=== PATIENT | female | born 1970 | race African-American/Black ===

== ENCOUNTER 2017-06-27 18:35 | Emergency (ER) | payer OTHER ==
[2017-06-27 19:32] LABS: Hematocrit 37.9 % (30.3-42.9); Mean Corpuscular HGB Conc 32 % (30-34); Mean Corpuscular Volume 77 fl (79-97); Platelet Count 218 K/mm3 (140-440); Red Blood Count 4.95 M/mm3 (3.65-5.03)
[2017-06-27 19:43] LABS: Alanine Aminotransferase 16 units/L (7-56); Albumin 3.7 g/dL (3.9-5); BUN/Creatinine Ratio 22; Blood Urea Nitrogen 11 mg/dL (7-17); Calcium 9.1 mg/dL (8.4-10.2); Hemolysis Index 1
[2017-06-27 19:51] LABS: Mean Corpuscular Hemoglobin 24 pg (28-32); Red Cell Distribution Width 26.9 % (13.2-15.2)
[2017-06-27 20:17] LABS: Basophils % (Manual) 0 % (0.0-1.8); Total Cells Counted 100
[2017-06-27 20:18] LABS: Ovalocytes 1+
[2017-06-27 20:19] LABS: Poikilocytosis Few
--- NOTE | 2017-06-27 21:20 | XRay Report ---
FINAL REPORT EXAM: XR CHEST ROUTINE 2V HISTORY: Shortness of breath TECHNIQUE: Frontal and lateral chest x-ray. PRIORS: None. FINDINGS: Cardiac and mediastinal silhouette within normal limits. Lungs are normally expanded, without significant vascular congestion. No focal consolidation, pleural effusion or apparent pneumothorax. Bony thorax grossly unremarkable. IMPRESSION: 1. No acute findings.
[2017-06-28 02:34] LABS: Bilirubin,Urine NEG (Negative); Blood,Urine NEG (Negative); Color,Urine Yellow (Yellow); Mucus,Urine FEW /HPF; Protein,Urine <15 mg/dL mg/dL (Negative); Urobilinogen,Urine < 2.0 mg/dL (<2.0)
[2017-06-28] MEDS ORDERED: TYLENOL PO ONE (07:38)
--- NOTE | 2017-06-28 08:45 | Ultrasound Report ---
FINAL REPORT EXAM: US PELVIC COMPLETE HISTORY: low abd pain bloating, hx fibroids TECHNIQUE: Pelvic ultrasound. Transabdominal and transvaginal scanning performed. PRIORS: None. FINDINGS: There is a posterior uterine fibroid measuring 4.7 x 3.7 x 4.3 cm. This may extend submucosally. The uterus measures 12.8 x 6.5 x 8.5 cm. Endometrium is thickened at 16.5 mm. In the right adnexa there is a masslike area measuring 7.8 x 4.1 x 6.5 cm. This has both cystic and solid components. Some of this may relate to est pedicular late it fibroid abutting the right ovary but adnexal origin mass not excluded. This area measures about 4.9 cm. There is also a 2.6 cm cystic lesion in the right adnexa and possibly an additional complex area measuring over 4 cm. Further evaluation is indicated The left ovary measures 3.2 x 2.9 x 2.5 cm there are 2 small cystic areas measuring 2.1 and 1.4 cm likely representing follicles.. There is blood flow within both ovaries. There is a moderate to large amount of free fluid. IMPRESSION: Enlarged uterus with 4.7 cm posterior fibroid which may be partially submucosal. Endometrium is thickened measuring 16.5 mm. Complex enlarged right adnexa/ovary. Several solid and cystic lesion seen. At least part of this may relate to a pedunculated fibroid. Other adnexal masses including neoplasm not excluded. Further evaluation with MRI recommended. There is moderate to large amount of pelvic free fluid.
--- NOTE | 2017-06-28 10:02 | Emergency Department Report ---
HPI - General Chief Complaint: Abdominal Pain Time Seen by Provider: 06/28/17 06:23 - HPI HPI: The patient is a 46-year-old female with a history of fibroids, presents for evaluation of a abd pain. The patient reports one week of intermittent lower abdominal pain, pressure-like in quality, mild to moderate in severity. The patient says that she is scheduled for an outpatient biopsy of newly diagnosed uterine fibroids. The patient denies fever, chills, night sweats, trauma to the abdomen and pelvis, chest pain, dyspnea, vomiting, diarrhea, blood in the stool , dark tarry stool, dysuria, hematuria, flank pain, vaginal bleeding, vaginal discharge, inability to pass flatus. ED Past Medical Hx - Past Medical History Previous Medical History?: Yes Hx Asthma: Yes Additional medical history: mass growing in uterus - Surgical History Past Surgical History?: Yes Hx Appendectomy: Yes - Social History Smoking Status: Never Smoker Substance Use Type: None - Medications Home Medications: Home Medications Medication Instructions Recorded Confirmed Last Taken Type Ibuprofen [Motrin] 600 mg PO Q8H PRN #30 tablet 06/28/17 Unknown Rx Ondansetron [Zofran TAB] 4 mg PO Q8HR PRN #15 tablet 06/28/17 Unknown Rx traMADol [Ultram 50 MG tab] 50 mg PO Q6HR PRN #15 tablet 06/28/17 Unknown Rx ED Review of Systems ROS: Stated complaint: ABD PAIN Other details as noted in HPI Constitutional: denies: fever ENT: denies: throat or neck pain Respiratory: denies: cough, shortness of breath Cardiovascular: denies: chest pain Endocrine: denies unexplained weight loss or gain Gastrointestinal: reports abdominal pain, nausea Genitourinary: denies: dysuria Musculoskeletal: denies: leg swelling Skin: denies: rash Neurological: denies: headache Hematological/Lymphatic: denies: easy bleeding or easy bruising Psych: denies sadness or hopelessness Physical Exam - Physical Exam Vital Signs: Vital Signs 06/27/17 06/28/17 06/28/17 18:55 04:56 05:01 Temperature 98.8 F Pulse Rate 71 75 Respiratory 16 18 16 Rate Blood Pressure 117/69 Blood Pressure 112/71 [Left] O2 Sat by Pulse 97 98 Oximetry 06/28/17 07:45 Temperature Pulse Rate 72 Respiratory 16 Rate Blood Pressure Blood Pressure 112/74 [Left] O2 Sat by Pulse 99 Oximetry Physical Exam: General: well-nourished, well-developed, no acute distress Head: Normocephalic, atraumatic Eyes: normal sclera ENT: Mucous membranes are pink and moist Neck: trachea midline, neck supple, No neck stiffness, no cervical adenopathy Respiratory: Breath sounds equal bilaterally, no wheezing, rales, or rhonchi Cardio: S1 and S2 present, no murmurs, rubs, gallops, capillary refill is brisk Abdomen: Normoactive bowel sounds, soft abdomen, suprapubic and bilateral lower abd pain, no rigidity, no guarding or rebound tenderness Musc: No pitting edema Skin: No rash Neuro: no facial drooping, normal speech Psych: Normal affect ED Course Vital Signs 06/27/17 06/28/17 06/28/17 18:55 04:56 05:01 Temperature 98.8 F Pulse Rate 71 75 Respiratory 16 18 16 Rate Blood Pressure 117/69 Blood Pressure 112/71 [Left] O2 Sat by Pulse 97 98 Oximetry 06/28/17 07:45 Temperature Pulse Rate 72 Respiratory 16 Rate Blood Pressure Blood Pressure 112/74 [Left] O2 Sat by Pulse 99 Oximetry ED Medical Decision Making - Lab Data Result diagrams: 06/27/17 19:19 06/27/17 19:19 - Medical Decision Making The patient was seen and examined by myself. The patient is placed on a transplant coordinator and continuous pulse ox. On initial evaluation, the patient was found to be in no distress. Evaluation orders are placed. Patient given tylenol for pain. Lab results were non-concerning including normal level of WBC , hemoglobin, hematocrit, electrolytes, renal function, LFTs, lipase, and urinalysis. US of the pelvis reveals a uterine mass and a right adnexal ovarian complex cystic lesion. X-ray of the abdomen is negative for air-fluid levels or bowel distention. The patient was reevaluated and reported that her pain was resolved. The patient is stable for discharge with outpatient follow-up. The patient is given follow-up and return instructions, including to follow with OB/ MEDICAL TECHNICAL WRITER for scheduling of biopsy of uterine and adnexal lesions. The patient expressed understanding and agreed with the plan. The patient is discharged in stable condition. Critical care attestation.: If time is entered above; I have spent that time in minutes in the direct care of this critically ill patient, excluding procedure time. ED Disposition Clinical Impression: Adnexal cyst, Acute suprapubic pain Uterine fibroid Qualifiers: Uterine leiomyoma location: unspecified location Qualified Code(s): D25.9 - Leiomyoma of uterus, unspecified Ovarian cyst Qualifiers: Laterality: right Qualified Code(s): N83.201 - Unspecified ovarian cyst, right side Disposition: TO HOME OR SELFCARE Is pt being admited?: No Does the pt Need Aspirin: No Condition: Stable Instructions: Abdominal Pain (ED), Uterine Fibroids (ED), Ovarian Cyst (ED) Additional Instructions: Make sure to follow-up with an [facility]INE [facility]PERATOR within the next 1-2 days for arrangement of biopsy of the adnexal/ovarian lesions and uterine mass identified on your Ultrasound, as the lesions could be malignant in nature. Referrals: [facility] [Provider Group] - 3-5 Days JUANA COSBY MD [Staff Physician] - 3-5 Days Time of Disposition: 10:55
[2017-06-28 11:26] VITALS: BP 116/71
--- NOTE | 2017-06-30 08:16 | XRay Report ---
FINAL REPORT EXAM: XR ABDOMEN 2V HISTORY: abd pain TECHNIQUE: upright and supine views of the abdomen and pelvis PRIORS: None. FINDINGS: No pneumoperitoneum. Bowel gas pattern is nonobstructive. No pathologic calcification or fracture. IMPRESSION: No acute finding. Consider CT for more sensitive and specific evaluation of abdominal pain as warranted.
== END 2017-06-28 11:05 | disposition home or self-care (01) ==
LOC: ED 18:35
DX: D25.9 Leiomyoma of uterus, unspecified (principal); N83.201 Unspecified ovarian cyst, right side; L72.9 Follicular cyst of the skin and subcutaneous tissue, unspecified; R10.9 Unspecified abdominal pain; J45.909 Unspecified asthma, uncomplicated
CPT/HCPCS: 36415; 71046; 74019; 76830; 76856; 80053; 81001; 83690; 83880; 84703; 85007; 85025; 93005; 93010